=== PATIENT | male | born 1990 | race Two or more races ===

== ENCOUNTER 2022-05-25 21:21 | Emergency (ER) | payer BC, OTHER ==
[~2022-05-25] VITALS: Ht 165.1 cm; Wt 73.0 kg
[2022-05-25 21:38] VITALS: BP 141/94
== END 2022-05-25 22:54 | disposition left against medical advice (07) ==
LOC: ER 21:27
DX: R07.89 Other chest pain (principal); R06.02 Shortness of breath; Z53.21 Procedure and treatment not carried out due to patient leaving prior to being seen by health care provider
CPT/HCPCS: 93005

== ENCOUNTER 2022-08-26 09:13 | Emergency (ER) | payer BC, OTHER | END 2022-08-26 09:35 | disposition left against medical advice (07) | LOC: ER 09:13 | DX: M25.561 Pain in right knee (principal); Z53.21 Procedure and treatment not carried out due to patient leaving prior to being seen by health care provider ==